=== PATIENT | male | born 1965 | race Caucasian/White ===

== ENCOUNTER 2017-05-13 14:30 | Inpatient (IN) | payer OTHER ==
[~2017-05-13] VITALS: Ht 172.7 cm; Wt 86.5 kg
[~2017-05-13 14:30] MED LIST: AMOXICILLIN875 MG PO; CRESTOR40 MG PO; EFFIENT10 MG PO; EXFORGE 10/11 TABLET PO; LOFIBRA,TRIGLI160 MG PO; LOSARTAN POTAS100 MG PO; NORVASC10 MG PO; VICODIN 5-3001 EACH PO; [UNRECOGNIZED DRUG - CODE]; allegra
[2017-05-13 15:10] LABS: BASOPHIL COUNT 0.1 K/uL (0-0.1); EOSINOPHIL (%) 6.3 % (0-5); EOSINOPHIL COUNT 0.4 K/uL (0-0.3); HEMATOCRIT 40.2 % (38.0-50.0); IMMATURE GRANULOCYTE (%) 0.6 % (0.0-0.7); LYMPHOCYTE COUNT 1.8 K/uL (1.0-2.8); MCH 32.2 PG (29.0-34.0); MCHC 34.3 G/DL (30.0-36.0); MCV 93.7 FL (86-99); MEAN PLAT.VOLUME 9.2 uM^3 (9.0-12.4); MONOCYTE (%) 10.1 % (3-12); MONOCYTE COUNT 0.7 K/uL (0-0.8); NEUTROPHIL (%) 56.9 % (45-76); PLATELET COUNT 202 K/uL (156-360); RBC DIS.WIDTH-CV 12.7 % (11.8-14.6); RBC DIS.WIDTH-SD 43.4 % (39-53); RED BLOOD COUNT 4.29 M/uL (4.00-5.50)
[2017-05-13 15:16] LABS: INTER. NORMALIZED RATIO 1.1; PROTHROMBIN TIME 12.1 SEC (10.2-12.9)
[2017-05-13 15:18] LABS: PTT 28.1 SEC (25-37)
[2017-05-13 15:21] LABS: CHLORIDE 102 mEq/L (99-109); POTASSIUM 3.6 mEq/L (3.7-5.4); SODIUM 137 mEq/L (136-147)
[2017-05-13 15:23] LABS: GLUCOSE 152 mg/dL (70-99)
[2017-05-13 15:25] LABS: ANION GAP 7 MEQ/L (2-14); TOTAL BILIRUBIN 0.9 mg/dL (0.0-1.0)
[2017-05-13 15:27] LABS: ALKALINE PHOSPHATASE 34 IU/L (3-129); GFR ESTIMATE (CALCULATED) > 59 mL/min/
[2017-05-13 15:28] LABS: UREA NITROGEN (BUN) 14 mg/dL (9-23)
[2017-05-13 19:48] VITALS: BP 141/85
[2017-05-13 23:52] VITALS: BP 111/65
[2017-05-14 03:31] VITALS: BP 115/67
[2017-05-14 05:48] LABS: HEMATOCRIT 36.8 % (38.0-50.0); MCH 33.2 PG (29.0-34.0); MCHC 35.3 G/DL (30.0-36.0); MCV 93.9 FL (86-99); MEAN PLAT.VOLUME 9.8 uM^3 (9.0-12.4); PLATELET COUNT 171 K/uL (156-360); RBC DIS.WIDTH-CV 12.8 % (11.8-14.6); RBC DIS.WIDTH-SD 44.1 % (39-53); RED BLOOD COUNT 3.92 M/uL (4.00-5.50); WHITE BLOOD COUNT 6.3 K/uL (4.1-10.2)
[2017-05-14 06:17] LABS: ALKALINE PHOSPHATASE 26 IU/L (3-129); ANION GAP 10 MEQ/L (2-14); CHLORIDE 101 MEQ/L (99-109); GFR ESTIMATE (CALCULATED) > 59 mL/min/; GLUCOSE 147 mg/dL (70-99); POTASSIUM 3.6 MEQ/L (3.7-5.4); SAMPLE HEMOLYSIS CHECK 0; SAMPLE ICTERIC CHECK 0; SAMPLE LIPEMIA CHECK 0; SODIUM 139 MEQ/L (136-147); TOTAL BILIRUBIN 0.7 MG/DL (0.0-1.0); UREA NITROGEN (BUN) 16 mg/dL (9-23)
[2017-05-14 06:54] LABS: Estimated Average Glucose 117 mg/dL (70-123); HEMOGLOBIN A1c (GLYCOHEMOGLOB) 5.7 % HGB (Below 5.7)
[2017-05-14 07:57] VITALS: BP 111/58
[2017-05-14] MEDS ORDERED: DIOVAN HCT 31 TABLE1 PO (11:04)
[2017-05-14] MEDS ORDERED: NEXIUM40 MG PO (11:05)
[2017-05-14] MEDS ORDERED: FLONASE16 G1 BOTH NARES (11:06)
[2017-05-14] MEDS ORDERED: PLAVIX75 MG PO (11:06)
[2017-05-14] MEDS ORDERED: RANEXA1000 MG PO (11:07)
[2017-05-14] MEDS ORDERED: NITROSTAT0.4 MG SL (11:07)
[2017-05-14] MEDS ORDERED: FISH OIL 1,2001 EAC3 PO (11:09)
[2017-05-14 12:51] VITALS: BP 123/71
[2017-05-14 15:55] VITALS: BP 124/70
[2017-05-14 15:58] LABS: HDL CHOLESTEROL 34 MG/DL (Desirable>=40); NON-HDL CHOLESTEROL 184 mg/dL (Desirable<160); TOTAL CHOLESTEROL 218 mg/dL (Desirable<200); TRIGLYCERIDES 436 MG/DL (Normal: <150)
[2017-05-14] MEDS ORDERED: CLOPIDOGREL75 MG PO (18:14)
== END 2017-05-14 18:30 | disposition home or self-care (01) | DRG 66 ==
LOC: EME 14:30 → EDOF 15:30 → 5SOUTH 15:30 → ENRESERV 15:30 → 5SOUTH 16:32
PROVIDERS: Emergency Medicine; Family Medicine; Internal Medicine
DX: I63.9 Cerebral infarction, unspecified (principal); I25.10 Atherosclerotic heart disease of native coronary artery without angina pectoris; I10 Essential (primary) hypertension; E78.00 Pure hypercholesterolemia, unspecified; R27.9 Unspecified lack of coordination; J45.909 Unspecified asthma, uncomplicated; K21.9 Gastro-esophageal reflux disease without esophagitis; E78.5 Hyperlipidemia, unspecified; M19.90 Unspecified osteoarthritis, unspecified site; Z95.5 Presence of coronary angioplasty implant and graft
CPT/HCPCS: 80053; 80061; 83036; 84443; 85025; 85027; 85610; 85730; 99281; 99284; J1650